=== PATIENT | female | born 1965 | race Two or more races ===

== ENCOUNTER 2024-08-28 08:53 | Day surgery (SDC) | payer OTHER ==
[~2024-08-28 08:53] MED LIST: TRAM1TAB98 PO
[2024-08-28] MEDS ORDERED: MIDAZOLAM HCL 2 MG/2 ML VIAL IV ONE (13:15)
[2024-08-28] MEDS ORDERED: fentaNYL CITRATE 50 MCG/ML AMPUL IV ONE (13:15)
[2024-08-28] MEDS ORDERED: DIPHENHYDRAMINE HCL 50 MG/ML VIAL 1ML IV ONE (13:15)
== END 2024-08-28 14:50 | disposition home or self-care (01) ==
LOC: AMB-ENDOS 08:53
PROVIDERS: ATTEND Surgery
DX: C20 Malignant neoplasm of rectum (principal); K57.30 Diverticulosis of large intestine without perforation or abscess without bleeding